=== PATIENT | male | born 1945 | race Two or more races ===

== ENCOUNTER 2018-03-23 23:16 | Emergency (ER) | payer MEDICARE ==
[~2018-03-23] VITALS: Ht 152.4 cm; Wt 54.0 kg
[2018-03-24] MEDS ORDERED: KETOROLAC 30MG/ML VIAL IV ONE (00:45)
[2018-03-24 01:06] VITALS: BP 151/92
== END 2018-03-24 01:32 | disposition home or self-care (01) ==
LOC: ER 23:16
DX: M75.52 Bursitis of left shoulder (principal); I10 Essential (primary) hypertension
CPT/HCPCS: 73030; 96374; 99284; J1885